=== PATIENT | female | born 1960 | race Caucasian/White ===

== ENCOUNTER 2018-08-14 10:21 | Emergency (ER) | payer OTHER ==
[~2018-08-14] VITALS: Ht 144.8 cm; Wt 63.5 kg
[2018-08-14 10:21] VITALS: BP_SYST 117
[~2018-08-14 10:21] MED LIST: CAND1TAB4; GLYB2.5T4
[2018-08-14] MEDS ORDERED: traMADol HCL HCL 50 MG TABLET (ULTRAM) PO ONE (11:45)
[2018-08-14 12:38] VITALS: BP_SYST 117
== END 2018-08-14 12:38 | disposition home or self-care (01) ==
LOC: SED 10:21
DX: S80.11XA Contusion of right lower leg, initial encounter (principal); J45.909 Unspecified asthma, uncomplicated; E11.9 Type 2 diabetes mellitus without complications; I10 Essential (primary) hypertension; Z90.710 Acquired absence of both cervix and uterus; Z79.899 Other long term (current) drug therapy; W19.XXXA Unspecified fall, initial encounter; Y93.01 Activity, walking, marching and hiking; Y92.89 Other specified places as the place of occurrence of the external cause; Y99.8 Other external cause status
CPT/HCPCS: 73590-TC; 99283